=== PATIENT | female | born 1980 | race Caucasian/White ===

== ENCOUNTER 2018-12-15 13:37 | Emergency (ER) | payer OTHER ==
[~2018-12-15] VITALS: Ht 165.1 cm; Wt 92.4 kg
[2018-12-15 15:23] VITALS: BP 126/69
== END 2018-12-15 15:29 | disposition home or self-care (01) ==
LOC: ED 15:23
DX: L03.116 Cellulitis of left lower limb (principal)
CPT/HCPCS: 36415; 80048; 85025; 99284